=== PATIENT | male | born 1975 | race Caucasian/White ===

== ENCOUNTER 2016-12-16 00:47 | Emergency (ER) | payer BC, OTHER ==
--- NOTE | 2016-12-16 01:07 | ER Document Report ---
ED General - General Mode of Arrival: Medic Information source: Patient, Relative - Spouse - HPI Onset: Just prior to arrival Associated symptoms: Chest pain <CHAMP KING - Last Filed: 12/16/16 02:54> <JOÃO OWENS - Last Filed: 12/16/16 04:29> - General Stated Complaint: TEMP,FACIAL DROOPING,CHEST PAIN Notes: Patient is a 41-year-old male presented worse department with complaints of chest pain and left-sided facial droop. Patient states that he is watching the football game and drank 3-4 beers tonight. Patient suddenly had some chest pain which he "grabbed his chest and fell to his knees." Patient states his chest pain stopped and he went to sit on his bed because he felt tired. Patient 's spouse states that the patient had a left sided facial droop which occurred approximately 10 minutes after the chest pain. Patient's past states that this facial droop lasted for approximately 2 minutes. Patient's denied any seizure related activity. Patient does not have any chest pain currently or any facial droop. Patient has had previous seizures in the past due to a allergic reaction to Ultram. Patient denies any previous alcohol withdrawal. ( CHAMP KING) - Related Data Allergies/Adverse Reactions: No Known Allergies Allergy (Verified 08/18/13 10:00) Past Medical History - General Information source: Patient, Relative - spouse - Social History Smoking Status: Never Smoker Cigarette use (# per day): No Chew tobacco use (# tins/day): No Frequency of alcohol use: Occasional Drug Abuse: None Family History: Other - degenerative disc disease lower back - Medical History Medical History: Negative Surgical Hx: Negative - Immunizations Hx Diphtheria, Pertussis, Tetanus Vaccination: - unk <CHAMP KING - Last Filed: 12/16/16 02:54> Review of Systems - Review of Systems Constitutional: No symptoms reported EENT: See HPI Cardiovascular: See HPI, Chest pain Respiratory: No symptoms reported Gastrointestinal: No symptoms reported Genitourinary: No symptoms reported Male Genitourinary: No symptoms reported Musculoskeletal: No symptoms reported Skin: No symptoms reported Hematologic/Lymphatic: No symptoms reported Neurological/Psychological: No symptoms reported -: Yes All other systems reviewed and negative <CHAMP KING - Last Filed: 12/16/16 02:54> Physical Exam - Vital signs Interpretation: Normal - General General appearance: Appears well, Alert In distress: None - HEENT Head: Normocephalic, Atraumatic Eyes: Normal Pupils: PERRL Mucous membranes: Moist - Respiratory Respiratory status: No respiratory distress Chest status: Nontender Breath sounds: Normal Chest palpation: Normal - Cardiovascular Rhythm: Regular Heart sounds: Normal auscultation Murmur: No - Abdominal Inspection: Normal Distension: No distension Bowel sounds: Normal Tenderness: Nontender Organomegaly: No organomegaly - Back Back: Normal, Nontender - Extremities General upper extremity: Normal inspection, Normal ROM, Normal strength General lower extremity: Normal inspection, Normal ROM, Normal strength - Neurological Neuro grossly intact: Yes Cognition: Normal Orientation: AAOx4 Orgas Coma Scale Eye Opening: Spontaneous Orgas Coma Scale Verbal: Oriented Orgas Coma Scale Motor: Obeys Commands Orgas Coma Scale Total: 15 Speech: Normal - Psychological Associated symptoms: Normal affect, Normal mood - Skin Skin Temperature: Warm Skin Moisture: Dry <CHAMP KING - Last Filed: 12/16/16 02:54> Course - Laboratory Result Diagrams: 12/16/16 01:00 12/16/16 01:00 <CHAMP KING - Last Filed: 12/16/16 02:54> - Laboratory Result Diagrams: 12/16/16 01:00 12/16/16 01:00 - Diagnostic Test Radiology reviewed: Reports reviewed - EKG Interpretation by Ut EKG shows normal: Sinus rhythm Rate: Tachycardia Rhythm: NSR <JOÃO OWENS - Last Filed: 12/16/16 04:29> - Re-evaluation Re-evalutation: 12/16/16 04:28 Patient is no acute findings on imaging or blood work. Patient feels better. It has been recommended to the patient that he stay for repeat cardiac blood work but he states that he feels better and he would prefer to go home. He will follow up at his clinic. No acute findings on exam. Stable for discharge. Return immediately if any worsening or concerning symptoms. Understands agrees with plan. (JOÃO OWENS) - Vital Signs Vital signs: Temp Pulse Resp BP Pulse Ox 98.4 F 108 H 20 136/98 H 94 12/16/16 00:53 12/16/16 03:00 12/16/16 03:00 12/16/16 03:00 12/16/16 03:00 (JOÃO OWENS) - Laboratory Laboratory results interpreted by me: 12/16/16 12/16/16 12/16/16 01:00 01:00 01:55 RDW 14.1 H Monocytes % 18.2 H AST 125 H ALT 125 H Urine Blood SMALL H (JOÃO OWENS) Discharge <CHAMP KING - Last Filed: 12/16/16 02:54> <JOÃO OWENS - Last Filed: 12/16/16 04:29> - Discharge Clinical Impression: Facial droop, resolved Chest pain Qualifiers: Chest pain type: unspecified Qualified Code(s): R07.9 - Chest pain, unspecified Condition: Stable Disposition: HOME, SELF-CARE Instructions: Chest Pain of Unclear Cause ([facility]) Additional Instructions: -Please return immediately if you have any worsening or concerning symptoms. Scribe Attestation: 12/16/16 04:29 I personally performed the services described in the documentation, reviewed and edited the documentation which was dictated to the scribe in my presence, and it accurately records my words and actions. (JOÃO OWENS) Scribe Documentation - Scribe Written by Libby:: Champ King 12/16/16 03:00 acting as scribe for :: Reyna <CHAMP KING - Last Filed: 12/16/16 02:54>
[2016-12-16 01:27] LABS: ABSOLUTE BASOPHILS # (AUTO) 0.1 10^3/uL (0.0-0.2); ABSOLUTE EOSINOPHILS # (AUTO) 0.1 10^3/uL (0.0-0.6); ABSOLUTE MONOCYTES (AUTO) 1.3 10^3/uL (0.1-1.4); ABSOLUTE NEUT (AUTO) 3.6 10^3/uL (1.7-8.2); BASOPHILS % (AUTO) 0.8 % (0-2); EOSINOPHILS % (AUTO) 1.3 % (0-6); HEMATOCRIT 46.1 % (37.9-51.0); HEMOGLOBIN 15.1 g/dL (13.5-17.0); HGB HCT DIFFERENCE -0.8; LYMPHOCYTES % (AUTO) 28.4 % (13-45); MEAN CORPUSCULAR HEMOGLOBIN 27.3 pg (27.0-33.4); MEAN CORPUSCULAR HGB CONC 32.6 g/dL (32.0-36.0); MEAN CORPUSCULAR VOLUME 84 fl (80-97); MONOCYTES % (AUTO) 18.2 % (3-13); RED BLOOD COUNT 5.51 10^6/uL (4.35-5.55); RED CELL DISTRIBUTION WIDTH 14.1 % (11.5-14.0); SEGMENTED NEUTROPHILS % (AUTO) 51.3 % (42-78); WHITE BLOOD COUNT 7.1 10^3/uL (4.0-10.5)
[2016-12-16 01:31] LABS: ALANINE AMINOTRANSFERASE 125 U/L (21-72); ALKALINE PHOSPHATASE 60 U/L (38-126); ANION GAP 14 (5-19); ASPARTATE AMINO TRANSFERASE 125 U/L (17-59); BILIRUBIN,TOTAL 0.4 mg/dL (0.2-1.3); BLOOD UREA NITROGEN 13 mg/dL (7-20); CALCIUM 9.2 mg/dL (8.4-10.2); CARBON DIOXIDE 24 mmol/L (22-30); CHLORIDE 102 mmol/L (98-107); CREATININE RESULT 1.04 mg/dL (0.52-1.25); GLUCOSE 102 mg/dL (75-110); POTASSIUM 4.4 mmol/L (3.6-5.0); SODIUM 140.4 mmol/L (137-145); TOTAL PROTEIN 7.4 g/dL (6.3-8.2)
[2016-12-16 01:32] LABS: PROTHROMBIN TIME 12.4 SEC (11.4-15.4)
[2016-12-16 01:52] LABS: VENOUS BLOOD BASE EXCESS -1.4 mmol/L; VENOUS BLOOD HCO3 24.2 mmol/L (20-32); VENOUS BLOOD PCO2 43.6 mmHg (35-63); VENOUS BLOOD PH 7.36 (7.30-7.42)
[2016-12-16 02:26] LABS: APPEARANCE,URINE CLEAR; BILIRUBIN,URINE NEGATIVE (NEGATIVE); GLUCOSE, URINE NEGATIVE (NEGATIVE); KETONES,URINE NEGATIVE (NEGATIVE); LEUKOCYTE ESTERASE,URINE NEGATIVE (NEGATIVE); NITRITE,URINE NEGATIVE (NEGATIVE); PROTEIN,URINE NEGATIVE (NEGATIVE); URINE SPECIFIC GRAVITY 1.002; UROBILINOGEN,URINE NEGATIVE mg/dL (<2.0)
[2016-12-16 03:17] VITALS: BP 136/98
--- NOTE | 2016-12-16 08:22 | EKG REPORT ---
SEVERITY:- BORDERLINE ECG - SINUS TACHYCARDIA NONSPECIFIC ST-T CHANGES- INFERIOR LEADS : Confirmed by: Tayo Manzo MD 16-Dec-2016 08:21:52
== END 2016-12-16 03:55 | disposition home or self-care (01) ==
LOC: ER 00:47
DX: R29.810 Facial weakness (principal); R07.9 Chest pain, unspecified; R50.9 Fever, unspecified
CPT/HCPCS: 36415; 70450; 71020; 80053; 81001; 82803; 82962; 83605; 84484; 85025; 85610; 87040; 87086; 93005; 93010; 99285

== ENCOUNTER 2018-02-26 14:17 | Emergency (ER) | payer SELFPAY ==
[2018-02-26] MEDS ORDERED: LIDOCAINE 1% INJ (10 MG/ML) 10 ML MDV INJ ONE (15:26)
--- NOTE | 2018-02-26 15:32 | ER Document Report ---
ED Hand/Wrist Injury - General Chief Complaint: Laceration Stated Complaint: THUMB LACERATION Time Seen by Provider: 02/26/18 15:16 Mode of Arrival: Ambulatory Information source: Patient Notes: 43-year-old male presents to ED for complaint of left thumb laceration. He states he was cutting some plastic and cut his left thumb with a pocket knife. He dressed this in some 4 x 4 and duct tape and came to the emergency room he stated he could not get it to stop bleeding he states that the pain is a sharp pain a 4 out of 5. He is alert oriented walks with a steady gait. TRAVEL OUTSIDE OF THE [place] IN LAST 30 DAYS: No - HPI Injury to: Thumb Onset: This afternoon Where: [place] [place] Timing: Still present Quality of pain: Sharp Severity: Moderate Pain Level: 4 Context: Laceration - Related Data Allergies/Adverse Reactions: No Known Allergies Allergy (Verified 08/18/13 10:00) Past Medical History - General Information source: Patient - Social History Smoking Status: Former Smoker Cigarette use (# per day): No Chew tobacco use (# tins/day): No Smoking Education Provided: No Frequency of alcohol use: Social Drug Abuse: None Occupation: [place] Lives with: Spouse/Significant other Family History: CAD, COPD, CVA, DM, Hyperlipidemia, Hypertension, Malignancy, Other - degenerative disc disease lower back. denies: Thyroid Disfunction Patient has suicidal ideation: No Patient has homicidal ideation: No - Past Medical History Cardiac Medical History: Reports: None Pulmonary Medical History: Reports: None EENT Medical History: Reports: None Neurological Medical History: Reports: None Endocrine Medical History: Reports: None Malignancy Medical History: Reports None GI Medical History: Reports: None Musculoskeltal Medical History: Reports None Skin Medical History: Reports None Psychiatric Medical History: Reports: None Traumatic Medical History: Reports: None Infectious Medical History: Reports: None Past Surgical History: Reports: Hx Oral Surgery - Dental surgery - Immunizations Immunizations up to date: Yes Hx Diphtheria, Pertussis, Tetanus Vaccination: Yes - He states less than 3 years ago today is 02/26/2018 Review of Systems - Review of Systems Constitutional: No symptoms reported EENT: No symptoms reported Cardiovascular: No symptoms reported Respiratory: No symptoms reported Gastrointestinal: No symptoms reported Genitourinary: No symptoms reported Male Genitourinary: No symptoms reported Musculoskeletal: No symptoms reported Skin: Other - Laceration to the left thumb Hematologic/Lymphatic: No symptoms reported Neurological/Psychological: No symptoms reported -: Yes All other systems reviewed and negative Physical Exam - Vital signs Vitals: Temp Pulse Resp BP Pulse Ox 98.8 F 98 17 165/97 H 97 02/26/18 14:30 02/26/18 14:30 02/26/18 14:30 02/26/18 14:30 02/26/18 14:30 Interpretation: Normal - General General appearance: Appears well, Alert - HEENT Head: Normocephalic, Atraumatic Eyes: Normal Pupils: PERRL - Respiratory Respiratory status: No respiratory distress Chest status: Nontender Breath sounds: Normal Chest palpation: Normal - Cardiovascular Rhythm: Regular Heart sounds: Normal auscultation Murmur: No - Abdominal Inspection: Normal Distension: No distension Bowel sounds: Normal Tenderness: Nontender Organomegaly: No organomegaly - Back Back: Normal, Nontender - Extremities General upper extremity: Normal inspection, Nontender, Normal color, Normal ROM , Normal temperature General lower extremity: Normal inspection, Nontender, Normal color, Normal ROM , Normal temperature, Normal weight bearing. No: Micaela's sign Hand: Tender, Laceration - left thumb, No evidence of human bite, No evidence of FB - Neurological Neuro grossly intact: Yes Cognition: Normal Orientation: AAOx4 Mirela Coma Scale Eye Opening: Spontaneous Mirela Coma Scale Verbal: Oriented Mirela Coma Scale Motor: Obeys Commands Mirela Coma Scale Total: 15 Speech: Normal Motor strength normal: LUE, RUE, LLE, RLE Sensory: Normal - Psychological Associated symptoms: Normal affect, Normal mood - Skin Skin Temperature: Warm Skin Moisture: Dry Skin Color: Normal Skin irregularity: Laceration - left thumb Course - Re-evaluation Re-evalutation: 02/26/18 17:05 Wound was cleaned well with surgical scrub irrigated with 300 of water and anesthetized with lidocaine 1% and 4 4-0 sutures used to close the wound. Patient was treated with bacitracin to the wound and giving Keflex and ibuprofen in the emergency room and discharged home with prescription for Keflex. Patient was given instructions on wound care and when to return to the doctor. - Vital Signs Vital signs: Temp Pulse Resp BP Pulse Ox 98.0 F 88 18 132/78 H 98 02/26/18 17:36 02/26/18 17:36 04/19/18 17:36 02/26/18 17:36 02/26/18 17:36 Procedures - Laceration/Wound Repair Left Finger Thumb Time completed: 17:04 Wound length (cm): 2.5 Wound's Depth, Shape: Linear Laceration pre-procedure: Sterile PPE donned, Sterile drapes applied Anesthetic type: 1% Lidocaine Volume Anesthetic (mLs): 4 Wound explored: No foreign body removed, Contaminated Irrigated w/ Saline (mLs): 300 Wound Repaired With: Sutures Suture Size/Type: 4:0 Number of Sutures: 4 Layer Closure?: No Post-procedure wound care: Sterile dressing applied Post-procedure NV exam normal: Yes Complications: No Discharge - Discharge Clinical Impression: Laceration of left thumb Qualifiers: Encounter type: initial encounter Damage to nail status: without damage Foreign body presence: without foreign body Qualified Code(s): S61.012A - Laceration without foreign body of left thumb without damage to nail, initial encounter HTN (hypertension) Qualifiers: Hypertension type: unspecified Qualified Code(s): I10 - Essential (primary) hypertension Condition: Stable Disposition: HOME, SELF-CARE Instructions: Family Physicians / Practices Additional Instructions: Hand Laceration A laceration on the hand can present special problems. It may be difficult to keep the wound dry. Motion of the fingers can disturb the healing edges. Your work may involve exposure to damaging chemicals or water. Keep the wound clean and dry. If you can't keep the cut dry, undisturbed, and free of chemical exposure, please discuss this with the doctor. If any water or chemical gets onto the dressing, remove it, blot the wound dry, then apply a fresh bandage. Dressings should be changed every day. If you feel the stitches pulling as you move the hand, a splint or other form of protection is needed. If any signs of infection occur (swelling, redness, increasing tenderness, red streaks, tender lumps in the armpit, or fever), see the doctor immediately. SOAP CLEANSING: Gently wash the wound daily using a mild soap (like Ivory, Phisoderm, Neutrogena). Use warm water, rubbing gently until all debris, ooze, and crusting have been washed from the wound. Allow to dry briefly (about 10 minutes) after cleaning. Repeat this cleansing at least three times a day for the first two days and then once or twice a day. ANTIBIOTIC OINTMENT PROTECTION: Your wounds are such that dressing them is not practical or optional. After cleansing, you should apply a thin coating of antibiotic ointment ( Bacitracin, not Neosporin) to the wounds at least three times daily. This lessens infection risk, and may decrease the amount of scarring. Use a q-tip or dull butter knife, not your finger, to apply this ointment. Any debris or ooze which builds up in the ointment should be gently rubbed off with a sterile gauze pad. Harder crusting may need to be gently scrubbed off with a clean wash cloth with soap and warm water, perhaps applying a warm, wet wash cloth to the wound for ten minutes first. Development of redness, severe itching, or blistering may mean allergy to the ointment. See the doctor. Cephalexin The antibiotic you've been prescribed is a member of the cephalosporin class. This type of antibiotic covers a wide variety of infections, including those of the skin, lungs, and urinary tract. It's useful for staph infections. This antibiotic is slightly similar to the penicillin family. In rare cases , a person who is allergic to penicillin will also be allergic to this medication. If you have had a severe allergic reaction to penicillin, and have not taken this antibiotic since that time, notify your doctor. Antibiotics which cover many germs ("broad spectrum" antibiotics) are more likely to cause diarrhea or "yeast" infections. Women prone to vaginal yeast problems may suffer an attack after taking this antibiotic. In infants, oral thrush (white spots "stuck" on the cheek) or yeast diaper rash may result. See your doctor if these problems occur. Call at once if you develop itching, hives , shortness of breath, or lightheadedness. Ibuprofen Ibuprofen is an excellent, safe drug for pain control. In addition, it has potent antiinflammatory effects which are beneficial, especially in the treatment of injuries, arthritis, or tendonitis. It's best to take ibuprofen with food. Persons with ulcer disease or allergy to aspirin should notify their physician of this before taking ibuprofen. Take the medication exactly as prescribed. Don't take additional doses unless instructed to do so by your doctor. If you develop wheezing, shortness of breath, hives, faintness, stomach pain, vomiting, or dark black stools, return for re-evaluation at once. Elevate the Injury Because of the nature of your injury, elevation will be helpful to reduce swelling. This also reduces infection risk in wounds. Keep the injury up above the level of your heart for at least the next 48 hours (or longer if the physician recommends it). FOLLOW-UP CARE: Please return in __3___ days for an infection check and dressing change. Your sutures should be removed in __8___ days. To facilitate a timely removal of your sutures, you may return to the Emergency Department at [facility]. You do not need to call for an appointment, but the best time to come in for suture removal is early in the morning. If you have been referred to another physician for follow-up care, call that physicians office for an appointment as you were instructed. If you experience a significant change in your laceration, or if you are concerned there may be an infection (swelling, redness, drainage, increasing tenderness, red streaks, tender lumps in the armpit or groin above the laceration, or fever) , return to the Emergency Department immediately re-evaluation. Prescriptions: Cephalexin Monohydrate [Keflex 500 mg Capsule] 500 mg PO QID #20 capsule Forms: Elevated Blood Pressure, Return to Work
[2018-02-26] MEDS ORDERED: CEPHALEXIN 500 MG CAPSULE PO ONE (16:57)
[2018-02-26] MEDS ORDERED: IBUPROFEN 600 MG TABLET PO ONE (16:57)
[2018-02-26 17:36] VITALS: BP 132/78
== END 2018-02-26 17:37 | disposition home or self-care (01) ==
LOC: ER 14:17
PROC: 0HQGXZZ Repair Left Hand Skin, External Approach (ICD-10-PCS; principal; 2018-02-26)
DX: S61.012A Laceration without foreign body of left thumb without damage to nail, initial encounter (principal); W26.0XXA Contact with knife, initial encounter; Y92.007 Garden or yard of unspecified non-institutional (private) residence as the place of occurrence of the external cause
CPT/HCPCS: 99282

== ENCOUNTER 2018-06-10 07:52 | Emergency (ER) | payer MEDICAID ==
--- NOTE | 2018-06-10 08:12 | ER Document Report ---
ED General - General Chief Complaint: Arm Pain Stated Complaint: ELBOW PAIN Time Seen by Provider: 06/10/18 08:11 Mode of Arrival: Ambulatory Information source: Patient TRAVEL OUTSIDE OF THE [place] IN LAST 30 DAYS: No - HPI Notes: 43-year-old male presents for right elbow pain after moving a carpet approximately 6 days ago. Pain with movement. Tried [id number]-muunitt ibuprofen and Tylenol without full relief. Has not tried any heat or icing. Denies any other area of injury. Denies previous injury to the elbow. Numbness or tingling down bilateral upper extremities. Reports that pain does radiate down to wrist when he does move it a certain way. Denies any trauma to elbow. Denies fevers, chills, chest pain,palpitations, shortness of breath, dyspnea, nausea, vomiting, diarrhea, abdominal pain, hematuria,blurred vision, double vision, loss of vision, speech changes, LH, dizziness, syncope, headaches , wheezing, ST, URI, neck pain, weakness, bowel or bladder dysfunction, saddle anesthesia, numbness or tingling in bilateral upper or lower extremities equally , muscle paralysis, weakness in bilateral upper or lower extremities equally or rash. Denies IV drug use. - Related Data Allergies/Adverse Reactions: No Known Allergies Allergy (Verified 08/18/13 10:00) Past Medical History - General Information source: Patient - Social History Smoking Status: Unknown if Ever Smoked Family History: CAD, COPD, CVA, DM, Hyperlipidemia, Hypertension, Malignancy, Other - degenerative disc disease lower back. denies: Thyroid Disfunction Renal/ Medical History: Denies: Hx Peritoneal Dialysis Past Surgical History: Reports: Hx Oral Surgery - Dental surgery - Immunizations Immunizations up to date: Yes Hx Diphtheria, Pertussis, Tetanus Vaccination: Yes - He states less than 3 years ago today is 02/26/2018 Review of Systems - Review of Systems Constitutional: No symptoms reported EENT: No symptoms reported Cardiovascular: No symptoms reported Respiratory: No symptoms reported Gastrointestinal: No symptoms reported Genitourinary: No symptoms reported Male Genitourinary: No symptoms reported Musculoskeletal: See HPI Skin: No symptoms reported Hematologic/Lymphatic: No symptoms reported Neurological/Psychological: No symptoms reported Physical Exam - Vital signs Vitals: Temp Pulse Resp BP Pulse Ox 99.0 F 86 14 175/98 H 100 06/10/18 07:58 06/10/18 07:58 06/10/18 07:58 06/10/18 07:58 06/10/18 07:58 - Notes Notes: PHYSICAL EXAMINATION: GENERAL: Well-appearing, well-nourished and in no acute distress. HEAD: Atraumatic, normocephalic. EYES: Pupils equal round and reactive to light, extraocular movements intact, sclera anicteric, conjunctiva are normal. ENT: Nares patent, oropharynx clear without exudates. Moist mucous membranes. NECK: Normal range of motion, supple without lymphadenopathy LUNGS: Breath sounds clear to auscultation bilaterally and equal. No wheezes rales or rhonchi. HEART: Regular rate and rhythm without murmurs ABDOMEN: Soft, nontender, nondistended abdomen. No guarding, no rebound. No masses appreciated. Musculoskeletal: Normal range of motion, no pitting or edema. No cyanosis. Right elbow pain with abduction and flexion and supination. no pain with pronation, extension. negative , Student Advisor + 2 BUE equally. APROM in shoulder. DTR + 2 in BUE equally. Noted crepitus with APROM in elbow. negative drop arm, neer sign, barr test, slightly positive impingement sign all on right. Full motor and sensory function in SHERRON. No vascular compromise. No noted swelling, abrasions, ecchymosis, lacerations, scars of recent trauma. No erythema or induration noted to area. Intact median, ulnar and radial nerves bilaterally and equally. NEUROLOGICAL: Cranial nerves grossly intact. Normal speech, normal gait. Normal sensory, motor exams PSYCH: Normal mood, normal affect. SKIN: Warm, Dry, normal turgor, no rashes or lesions noted. Course - Re-evaluation Re-evalutation: 06/10/18 16:55 43-year-old male afebrile vitals stable no distress presents for evaluation of acute right elbow pain. X-ray negative for any acute fracture dislocation, noted effusion. Patient placed in sling, advised to exercise elbow, apply heat 20 minutes on 20 minutes off several times a day. Patient has a right elbow sprain with effusion, low suspicion for rupture. I have reevaluated this patient multiple times and no significant life threatening changes, no signs of toxicity, sepsis or peritonitis are noted. The patient and I have discussed the diagnosis and risks, and we agree with discharging home and close follow- up. We also discussed returning to the Emergency Department immediately if new or worsening symptoms occur with the understanding that symptoms and presentations can change. At this time will discharge with return precautions and follow-up recommendations. Verbal discharge instructions given a the bedside and opportunity for questions given. We have discussed the symptoms which are most concerning (e.g., weakness in arm, fever and chills, numbness or tingling down bilateral upper hands, etc) that necessitate immediate return. Medication warnings reviewed. All questions and concerns answered by this provider. Patient is in agreement with this plan and has verbalized understanding of return precautions and the need for primary care follow-up in the next 24-72 hours. Patient verbalized understanding of plan of care and agree with plan of care. After performing a Medical Screening Examination, I estimate there is LOW risk for OPEN FRACTURE, COMPARTMENT SYNDROME, TENDON RUPTURE, ACUTE NEUROVASCULAR INJURY, or RETAINED FOREIGN BODY, thus I consider the discharge disposition reasonable. Also, there is no evidence or peritonitis, sepsis, or toxicity. I have reevaluated this patient multiple times and no significant life threatening changes are noted. The patient and I have discussed the diagnosis and risks, and we agree with discharging home with close follow-up with the understanding that symptoms and presentations can change. We also discussed returning to the Emergency Department immediately if new or worsening symptoms occur. We have discussed the symptoms which are most concerning (e.g., changing or worsening pain, fever, numbness, weakness, cool or painful digits) that necessitate immediate return. - Vital Signs Vital signs: Temp Pulse Resp BP Pulse Ox 99.0 F 86 14 160/92 H 100 06/10/18 07:58 06/10/18 07:58 06/10/18 07:58 06/10/18 09:24 06/10/18 07:58 Discharge - Discharge Clinical Impression: Right elbow tendonitis, Effusion, right elbow Condition: Stable Disposition: HOME, SELF-CARE Instructions: Elbow Effusion ([facility]), Tennis Elbow (Lateral Epicondylitis) ([facility]) Additional Instructions: The x-ray showed an effusion, no fracture dislocation. Elbow Effusion Your elbow shows no sign of fracture. However, there is fluid (probably blood) within the elbow joint. This may be due to a subtle cartilage injury or sprain, but it may also be a sign of a hidden fracture at the elbow. The usual treatment is to immobilize the elbow, and treat it exactly as if it were broken. Then in a few days, the joint will be rechecked by the physician for evidence of a hidden fracture. This follow-up is important -- the elbow must be checked as often as necessary until the physician is sure there is no broken bone. You should call the doctor or return at once if the elbow or forearm becomes severely painful or swollen, or if you become numb in the arm or hand. Do not drive, drink or operate heavy machinery while taking [place] as it can cause sedation, impairment of judgment. Sling throughout day, date arm out of sling to prevent contracture. Rice therapy. Take prednisone as directed, take [id number] anti- inflammatories as needed. Please follow up with the Orthopedics [facility] [address] [place] [id number] Return immediately for any new or worsening symptoms. Follow up with primary care provider, call tomorrow to make followup appointment. Prescriptions: Prednisone 20 mg PO BID #10 tablet Forms: Return to Work Referrals: TAMY MCKOY MD [ACTIVE STAFF] - Follow up in 3-5 days MARVIN ROBERTSON MD [ACTIVE STAFF] - Follow up in 3-5 days
--- NOTE | 2018-06-10 08:56 | RADIOLOGY REPORT (SQ) ---
EXAM DESCRIPTION: ELBOW RIGHT OVER 2 VIEWS COMPLETED DATE/TIME: 06/10/2018 8:41 am REASON FOR STUDY: pain x 5 days, worse with time COMPARISON: 02/10/2012. NUMBER OF VIEWS: Four views. TECHNIQUE: AP, lateral, and both oblique radiographic images acquired of the right elbow. LIMITATIONS: None. FINDINGS: MINERALIZATION: Normal. BONES: No acute fracture or dislocation. No worrisome bone lesions. JOINT: Mild prominence of the anterior fat pad which may indicate a small effusion. Posterior fat pa d not visualized. SOFT TISSUES: No soft tissue swelling. No foreign body. OTHER: No other significant finding. IMPRESSION: POSSIBLE SMALL JOINT EFFUSION. NO SIGNIFICANT BONY FINDINGS. TECHNICAL DOCUMENTATION: JOB ID: [id number] [employer]- All Rights Reserved Reading location - IP/workstation name: [email or web address]
[2018-06-10] MEDS ORDERED: HYDROCODONE/ACETAMINOPHEN 5-325 MG (6 TAB/ER DISP) PO PRN (09:01)
[2018-06-10 09:25] VITALS: BP 160/92
== END 2018-06-10 09:25 | disposition home or self-care (01) ==
LOC: ER 07:52
DX: M77.9 Enthesopathy, unspecified (principal); M25.421 Effusion, right elbow; M25.521 Pain in right elbow
CPT/HCPCS: 99283

== ENCOUNTER 2018-09-10 14:22 | Emergency (ER) | payer MEDICAID ==
[2018-09-10 14:43] VITALS: BP 164/95
[2018-09-10] MEDS ORDERED: DEXAMETHASONE SOD PHOS INJ 10 MG/1 ML VIAL IM ONE (14:56)
[2018-09-10] MEDS ORDERED: KETOROLAC TROMETHAMINE 60 MG/2 ML SDV IM ONE (14:56)
[2018-09-10] MEDS ORDERED: LIDOCAINE 5% (700 MG) TRANSDERMAL ADH..PATCH TP ONE (14:56)
--- NOTE | 2018-09-10 15:05 | ER Document Report ---
HPI - HPI Pain Level: 4 Notes: Patient is a 43-year-old male with no significant past medical history who presents to the ED complaining of right lower back pain times 1 week status post lifting injury. Patient states that he was lifting some heavy boxes at the time when he notices pain starting. Patient states that the pain has been relatively constant for the last week and does not radiate. Bending and twisting makes his pain worse. He is still eating and drinking without any difficulties. He is urinating normally and having normal bowel movements. He is able to ambulate. Denies drug allergies. Denies any IV drug use or spinal abscess history. Denies any headache, fever, neck pain, URI, sore throat, chest pain, palpitations, syncope, cough, shortness of breath, wheeze, dyspnea, abdominal pain, nausea/vomiting/diarrhea, urinary retention, dysuria, hematuria , loss of control of bowel or bladder, numbness/tingling, saddle anesthesia, muscle paralysis/weakness, or rash. - ROS Systems Reviewed and Negative: Yes All other systems reviewed and negative Past Medical History - Social History Smoking Status: Unknown if Ever Smoked Family History: CAD, COPD, CVA, DM, Hyperlipidemia, Hypertension, Malignancy, Other - degenerative disc disease lower back. denies: Thyroid Disfunction - Past Medical History Cardiac Medical History: Reports: Hx Hypertension Renal/ Medical History: Denies: Hx Peritoneal Dialysis Past Surgical History: Reports: Hx Oral Surgery - Dental surgery - Immunizations Immunizations up to date: Yes Hx Diphtheria, Pertussis, Tetanus Vaccination: Yes - He states less than 3 years ago today is 02/26/2018 Vertical Provider Document - CONSTITUTIONAL Agree With Documented VS: Yes Notes: PHYSICAL EXAMINATION: GENERAL: Well-appearing, well-nourished and in no acute distress. LUNGS: Breath sounds clear to auscultation bilaterally and equal. No wheezes rales or rhonchi. HEART: Regular rate and rhythm without murmurs, rubs, gallops. ABDOMEN: Soft, nontender, nondistended abdomen. No guarding, no rebound. No masses appreciated. Normal bowel sounds present. No CVA tenderness bilaterally. No pulsatile mass. rectal tone intact. Musculoskeletal: LE's b/l: FROM to passive/active. Strength 5+/5. No deficits noted. No bony tenderness of extremities. Back: FROM to passive/active. Strength 5+/5. No vertebral point tenderness, stepoffs, or deformities. No other bony tenderness, erythema, swelling, or ecchymosis. SLR negative b/l. + Rt tenderness to the lower L-paraspinal mm. Mild spasming. No SI jt tenderness. No foot drop Extremities: No cyanosis, clubbing, or edema b/l. Peripheral pulses 2+. Capillary refill less than 2 seconds. NEUROLOGICAL: Normal speech, normal gait. Normal sensory, motor exams. Reflexes 2+ b/l. PSYCH: Normal mood, normal affect. SKIN: Warm, Dry, normal turgor, no rashes or lesions noted. - INFECTION CONTROL TRAVEL OUTSIDE OF THE [place] IN LAST 30 DAYS: No Course - Re-evaluation Re-evalutation: 09/10/18 14:59 Patient is an afebrile, well-hydrated, 43-year-old male who presents to the ED with acute low back pain, suspect strain/sprain. Vitals are acceptable. PE is otherwise unremarkable for any focal neurological deficits. Patient was given Decadron, Toradol, and Lidoderm patch. He has no significant tachycardia, tachypnea, or hypoxia. He is nontoxic-appearing and is tolerating p.o. without difficulties. No deterioration over the past week. There are no signs of infection. No other red flag symptoms noted. No other labs or imaging warranted at this time based on H&P. Low suspicion for any meningitis, fracture , expanding/ruptured AAA, cauda equina syndrome, epidural mass lesion/abscess, herniated disc causing severe spinal stenosis, or other systemic infection at this time. Patient is aware that his condition can change from initial presentation and that he needs monitor symptoms closely for any acute changes. I will send him home with a prescription for baclofen and naproxen. Conservative measures otherwise for symptoms. Recheck with your PCM in 3-5 days. Consider consult with orthopedic/physical therapy. Return to the ED with any worsening/concerning symptoms otherwise as reviewed discharge. Patient is in agreement. - Vital Signs Vital signs: Temp Pulse Resp BP Pulse Ox 98.6 F 85 18 164/95 H 99 09/10/18 14:41 09/10/18 14:41 09/10/18 14:41 09/10/18 14:41 09/10/18 14:41 Discharge - Discharge Clinical Impression: Low back pain Qualifiers: Chronicity: acute Back pain laterality: right Sciatica presence: without sciatica Qualified Code(s): M54.5 - Low back pain Condition: Stable Disposition: HOME, SELF-CARE Instructions: Low Back Pain ([facility]), Muscle Relaxers ([facility]) Additional Instructions: Rest, Ice Tylenol/ibuprofen as needed Light stretches daily Strength exercises as able Moist heat and massage may help F/u with your PCP in 3-5 days for a recheck Consider consult(s) with Orthopedics/physical therapy for ongoing/worsening symptoms Denies any headache, fever, head injury, neck pain, changes in vision/speech/ mentation/hearing, URI, sore throat, chest pain, palpitations, syncope, cough, shortness of breath, wheeze, dyspnea, abdominal pain, nausea/vomiting/diarrhea, urinary retention, dysuria, hematuria, loss of control of bowel or bladder, numbness/tingling, saddle anesthesia, muscle paralysis/weakness, or rash. Prescriptions: Baclofen [Baclofen 10 mg Tablet] 5 - 10 mg PO BID PRN #10 tablet PRN Reason: Lidocaine [Lidoderm] 1 each TP DAILY #10 adh..patch Naproxen 500 mg PO BID PRN #20 tablet PRN Reason: Forms: Elevated Blood Pressure Referrals: [facility] ([facility]) [Provider Group] - Follow up as needed
== END 2018-09-10 15:32 | disposition home or self-care (01) ==
LOC: ER 14:22
DX: M54.5 Low back pain (principal); I10 Essential (primary) hypertension
CPT/HCPCS: 99283; 96372; J1885; J3490; J1100

== ENCOUNTER 2019-04-09 19:44 | Emergency (ER) | payer MEDICAID ==
[2019-04-09 19:57] VITALS: BP 170/107
[2019-04-09] MEDS ORDERED: HYDROCODONE/ACETAMINOPHEN 7.5-325 MG TABLET PO ONE (21:51)
--- NOTE | 2019-04-09 21:53 | ER Document Report ---
ED Medical Screen (RME) - General Chief Complaint: Hand Injury Stated Complaint: FINGER LACERATION Time Seen by Provider: 04/09/19 21:51 Notes: Patient is a 44-year-old male presents to the emergency department with multiple lacerations to his right hand. States a cupboard was opened and fell. States all the glasses over and it fell to the ground shattered. States he sustained multiple lacerations to his right hand. States his tetanus immunization is up-to-date. Patient's denying any other complaints. GENERAL: Alert, interacts well. No acute distress. SKIN: Warm, dry, normal turgor. Dry blood noted entire right hand, does still appear to have 2 lacerations to the dorsal aspect of the right hand. Further evaluation examination will be done once patient is in her room. I have greeted and performed a rapid initial assessment of this patient. A comprehensive ED assessment and evaluation of the patient, analysis of test results and completion of the medical decision making process will be conducted by additional ED providers. TRAVEL OUTSIDE OF THE [place] IN LAST 30 DAYS: No - Related Data Allergies/Adverse Reactions: No Known Allergies Allergy (Verified 04/09/19 19:47) Past Medical History - Past Medical History Cardiac Medical History: Reports: Hx Hypertension Renal/ Medical History: Denies: Hx Peritoneal Dialysis Past Surgical History: Reports: Hx Oral Surgery - Dental surgery - Immunizations Immunizations up to date: Yes Hx Diphtheria, Pertussis, Tetanus Vaccination: Yes - He states less than 3 years ago today is 02/26/2018 Physical Exam - Vital signs Vitals: Temp Pulse Resp BP Pulse Ox 98.2 F 101 H 14 170/107 H 98 04/09/19 19:52 04/09/19 19:52 04/09/19 19:52 04/09/19 19:52 04/09/19 19:52 Course - Vital Signs Vital signs: Temp Pulse Resp BP Pulse Ox 98.2 F 101 H 14 170/107 H 98 04/09/19 19:52 04/09/19 19:52 04/09/19 19:52 04/09/19 19:52 04/09/19 19:52
--- NOTE | 2019-04-09 22:44 | RADIOLOGY REPORT (SQ) ---
EXAM DESCRIPTION: XR HAND 3 OR MORE VIEWS COMPLETED DATE/TME: 04/09/2019 21:51 CLINICAL HISTORY: 44 years, Male, multiple lacs with glass COMPARISON: None. NUMBER OF VIEWS: 3 TECHNIQUE: 3 view right hand LIMITATIONS: None. FINDINGS: Negative for acute fracture or dislocation. Old healed fifth metacarpal fracture. Minor degenerative changes throughout the hand and wrist. Mild diffuse soft tissue swelling. No radiopaque foreign body IMPRESSION: No acute osseous abnormality. No radiopaque foreign body copyright 2010 [employer]- All Rights Reserved
[2019-04-09] MEDS ORDERED: ONDANSETRON 4 MG TAB.RAPDIS PO ONE (23:12)
[2019-04-09] MEDS ORDERED: HYDROMORPHONE HCL INJ/PF 2 MG/ML AMPULE SUBCUT ONE (23:12)
[2019-04-09] MEDS ORDERED: LIDOCAINE 1% INJ-PF (10 MG/ML) 30 ML SDV INJ ONE (23:18)
--- NOTE | 2019-04-09 23:27 | ER Document Report ---
ED General - General Chief Complaint: Hand Injury Stated Complaint: FINGER LACERATION Time Seen by Provider: 04/09/19 21:51 Primary Care Provider: DARREN WALTON DO [Primary Care Provider] - Follow up as needed Mode of Arrival: Ambulatory Information source: Patient TRAVEL OUTSIDE OF THE [place] IN LAST 30 DAYS: No - HPI Patient complains to provider of: Multiple lacerations to the right hand Onset: Just prior to arrival Onset/Duration: Sudden Quality of pain: Sharp Severity: Severe Pain Level: 5 Associated symptoms: None Exacerbated by: Movement Relieved by: Denies Similar symptoms previously: No Recently seen / treated by doctor: No Notes: 44-year-old male coming in today complaining of right hand lacerations. Evidently a cabinet full of glasses fell over on his daughter and in the process shattered glass fell on his hand when he was trying to lift the cabinet off of his daughter. He sustained multiple lacerations on his right hand. His tetanus shot is up-to-date. - Related Data Allergies/Adverse Reactions: No Known Allergies Allergy (Verified 04/09/19 19:47) Past Medical History - General Information source: Patient - Social History Smoking Status: Smoker,Current Status Unk Family History: CAD, COPD, CVA, DM, Hyperlipidemia, Hypertension, Malignancy, Other - degenerative disc disease lower back. denies: Thyroid Disfunction - Past Medical History Cardiac Medical History: Reports: Hx Hypertension Renal/ Medical History: Denies: Hx Peritoneal Dialysis Past Surgical History: Reports: Hx Oral Surgery - Dental surgery - Immunizations Immunizations up to date: Yes Hx Diphtheria, Pertussis, Tetanus Vaccination: Yes - He states less than 3 years ago today is 02/26/2018 Review of Systems - Review of Systems Notes: Constitutional: No fevers. No chills. EENT: No eye redness. No eye pain. No ear pain. No sore throat. Cardiovascular: No chest pain. No palpitations. Respiratory: No cough. No shortness of breath. No respiratory distress. Gastrointestinal: No abdominal pain. No nausea, vomiting, or diarrhea. Genitourinary: Atraumatic. No lesions. No pain. No discharge. Musculoskeletal: Positive for right hand lacerations Skin: No rash or lesions. Lymphatic: No swollen lymph nodes. Neurologic: No headache. No syncope. Psychiatric: No suicidal or homicidal ideation. Physical Exam - Vital signs Vitals: Temp Pulse Resp BP Pulse Ox 98.2 F 101 H 14 170/107 H 98 04/09/19 19:52 04/09/19 19:52 04/09/19 19:52 04/09/19 19:52 04/09/19 19:52 - Notes Notes: General: Well-developed, well-nourished. In no acute distress. Non-toxic appearing. Cardiac: Well-perfused. Regular rate and rhythm. No murmurs, rubs, or gallops. Pulmonary: No respiratory distress. No cyanosis. Bilateral lung fiels are clear to auscultation. Abdominal: Non-distended. Non-rigid. Bowels sounds are present in all four quadrants. No guarding or rebound. HEENT: Head is atraumatic. Conjunctivae not reddened. No tearing. PERRL. EOMI. Orbits atraumatic. No periorbital swelling or erythema. Oropharynx is without erythema, swelling, or exudates. Neck: Supple. No adenopathy. No meningismus. Dermatologic: Warm with good turgor. No rash. Atraumatic. Chest: Atraumatic. No chest wall tenderness to palpation. Musculoskeletal: 6 cm flap laceration lateral aspect of right long finger. 2 cm laceration to the dorsum of the right hand between the MCP joints of the third and fourth fingers. Both were examined for foreign bodies and none were found. Genitourinary: Examination deferred Neurologic: No gross neurologic deficits. Psychiatric: Normal mood. Course - Re-evaluation Re-evalutation: 04/10/19 00:20 X-rays of the right hand were negative for fracture and foreign body. Wounds were sutured successfully. Patient will be discharged home shortly - Vital Signs Vital signs: Temp Pulse Resp BP Pulse Ox 98.2 F 101 H 14 170/107 H 98 04/09/19 19:52 04/09/19 19:52 04/09/19 19:52 04/09/19 19:52 04/09/19 19:52 Procedures - Laceration/Wound Repair RIGHT THIRD FINGER Time completed: 00:21 Wound length (cm): 6 Wound's Depth, Shape: Linear, Flap Laceration pre-procedure: Sterile PPE donned, Sterile drapes applied, Shur-Clens applied Anesthetic type: 1% Lidocaine Volume Anesthetic (mLs): 8 Wound explored: Clean, No foreign body removed Wound Repaired With: Sutures Suture Size/Type: 4:0, Ethilon Number of Sutures: 6 Layer Closure?: No Post-procedure wound care: Sterile dressing applied, Splint applied Post-procedure NV exam normal: Yes Complications: No RIGHT HAND LACERATION Time completed: 00:22 Wound length (cm): 2 Wound's Depth, Shape: Linear Laceration pre-procedure: Sterile PPE donned, Sterile drapes applied, Shur-Clens applied Anesthetic type: 1% Lidocaine Volume Anesthetic (mLs): 3 Wound explored: Clean, No foreign body removed Wound Repaired With: Sutures Suture Size/Type: 4:0, Ethilon Number of Sutures: 3 Layer Closure?: No Discharge - Discharge Clinical Impression: Finger laceration Qualifiers: Encounter type: initial encounter Finger: middle finger Damage to nail status: without damage Foreign body presence: without foreign body Laterality: right Qualified Code(s): S61.212A - Laceration without foreign body of right middle finger without damage to nail, initial encounter Hand laceration Qualifiers: Encounter type: initial encounter Foreign body presence: without foreign body Laterality: right Qualified Code(s): S61.411A - Laceration without foreign body of right hand, initial encounter Condition: Good Disposition: HOME, SELF-CARE Instructions: Antibiotic Ointment Protection ([facility]), Laceration Care ([facility]), Soap Cleansing ([facility]), Oral Narcotic Medication ([facility]), Tetanus Immunization Given ([facility]) Additional Instructions: Be sure to clean the wounds at least once a day with gentle soap and water. You may apply antibiotic ointment to the lacerations. The sutures may be removed in 10 to 14 days. Be sure that YOU use your splint on the middle finger laceration for the full duration until the sutures are removed. Referrals: DARREN WALTON, [Primary Care Provider] - Follow up as needed
[2019-04-10] MEDS ORDERED: HYDROCODONE/ACETAMINOPHEN 5-325 MG (6 TAB/ER DISP) PO PRN (00:18)
== END 2019-04-10 01:21 | disposition home or self-care (01) ==
LOC: ER 19:44
DX: S61.212A Laceration without foreign body of right middle finger without damage to nail, initial encounter (principal); S61.411A Laceration without foreign body of right hand, initial encounter; W25.XXXA Contact with sharp glass, initial encounter; Y93.89 Activity, other specified; I10 Essential (primary) hypertension
CPT/HCPCS: 99283; 96372; 73130; 12004; S0119; J3490; J1170

== ENCOUNTER 2019-06-01 10:48 | Emergency (ER) | payer OTHER, MEDICAID ==
[2019-06-01 10:58] VITALS: BP 154/99
[2019-06-01] MEDS ORDERED: LIDOCAINE 1% INJ-PF (10 MG/ML) 30 ML SDV INJ ONE (11:08)
--- NOTE | 2019-06-01 11:14 | ER Document Report ---
ED Extremity Problem, Lower - General Chief Complaint: Laceration Stated Complaint: ANKLE LACERATION Time Seen by Provider: 06/01/19 11:07 Primary Care Provider: DARREN WALTON DO [Primary Care Provider] - 06/04/19 Mode of Arrival: Ambulatory Information source: Patient Notes: 44-year-old male presents to ED for a laceration to the left lower leg. It is 6 cm in length very superficial. 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 He is alert oriented respirations regular and unlabored speaking in full sentences. He states his last tetanus shot was in 2015. He states he does not smoke he drinks on weekends and does not do drugs. TRAVEL OUTSIDE OF THE [place] IN LAST 30 DAYS: No - HPI Patient complains to provider of: Injury, Pain, Swelling Location: Leg Occurred: Just prior to arrival Where: Work Onset/Duration: Sudden Quality of pain: Sharp, Throbbing Severity: Moderate Pain Level: 4 Context: Laceration Recent injury: Yes Associated symptoms: Painful ambulation Exacerbated by: Hanging down, Movement, Walking Relieved by: Nothing - Related Data Allergies/Adverse Reactions: No Known Allergies Allergy (Verified 06/01/19 10:50) Past Medical History - General Information source: Patient - Social History Smoking Status: Never Smoker Frequency of alcohol use: Social Drug Abuse: None Occupation: [employer] Family History: CAD, COPD, CVA, DM, Hyperlipidemia, Hypertension, Malignancy, Other - degenerative disc disease lower back. denies: Thyroid Disfunction Patient has suicidal ideation: No Patient has homicidal ideation: No - Past Medical History Cardiac Medical History: Reports: Hx Hypertension Pulmonary Medical History: Reports: None EENT Medical History: Reports: None Neurological Medical History: Reports: None Endocrine Medical History: Reports: None Renal/ Medical History: Reports: None Malignancy Medical History: Reports None GI Medical History: Reports: None Musculoskeletal Medical History: Reports None Skin Medical History: Reports None Psychiatric Medical History: Reports: None Traumatic Medical History: Reports: None Infectious Medical History: Reports: None Past Surgical History: Reports: Hx Oral Surgery - Dental surgery - Immunizations Immunizations up to date: Yes Hx Diphtheria, Pertussis, Tetanus Vaccination: Yes - 2015 Review of Systems - Review of Systems Constitutional: No symptoms reported EENT: No symptoms reported Cardiovascular: No symptoms reported Respiratory: No symptoms reported Gastrointestinal: No symptoms reported Genitourinary: No symptoms reported Male Genitourinary: No symptoms reported Musculoskeletal: No symptoms reported Skin: Other - Laceration left lower leg Hematologic/Lymphatic: No symptoms reported Neurological/Psychological: No symptoms reported -: Yes All other systems reviewed and negative Physical Exam - Vital signs Vitals: Temp Pulse Resp BP Pulse Ox 98.2 F 95 15 154/99 H 98 06/01/19 10:57 06/01/19 10:57 06/01/19 10:57 06/01/19 10:57 06/01/19 10:57 Interpretation: Normal - General General appearance: Appears well, Alert - HEENT Head: Normocephalic, Atraumatic Eyes: Normal Pupils: PERRL - Respiratory Respiratory status: No respiratory distress Chest status: Nontender Breath sounds: Normal Chest palpation: Normal - Cardiovascular Rhythm: Regular Heart sounds: Normal auscultation Murmur: No - Abdominal Inspection: Normal Distension: No distension Bowel sounds: Normal Tenderness: Nontender Organomegaly: No organomegaly - Back Back: Normal, Nontender - Extremities General upper extremity: Normal inspection, Nontender, Normal color, Normal ROM, Normal temperature General lower extremity: Normal inspection, Nontender, Normal color, Normal ROM, Normal temperature, Normal weight bearing. No: Micaela's sign - Neurological Neuro grossly intact: Yes Cognition: Normal Orientation: AAOx4 Mirela Coma Scale Eye Opening: Spontaneous Catarina Coma Scale Verbal: Oriented Catarina Coma Scale Motor: Obeys Commands Mirela Coma Scale Total: 15 Speech: Normal Motor strength normal: LUE, RUE, LLE, RLE Sensory: Normal - Psychological Associated symptoms: Normal affect, Normal mood - Skin Skin Temperature: Warm Skin Moisture: Dry Skin Color: Normal Skin irregularity: Laceration - 6 cm left lateral lower leg Location of irregularity: Extremities Irregularity with: Tenderness Course - Vital Signs Vital signs: Temp Pulse Resp BP Pulse Ox 98.2 F 95 15 154/99 H 98 06/01/19 10:57 06/01/19 10:57 06/01/19 10:57 06/01/19 10:57 06/01/19 10:57 - Diagnostic Test Radiology reviewed: Image reviewed Procedures - Laceration/Wound Repair Left Leg Time completed: 11:42 Wound length (cm): 6 Wound's Depth, Shape: Superficial, Linear Laceration pre-procedure: Sterile PPE donned, Sterile drapes applied, Shur-Clens applied Anesthetic type: 1% Lidocaine Volume Anesthetic (mLs): 6 Wound explored: Contaminated Irrigated w/ Saline (mLs): 300 Wound Repaired With: Sutures Suture Size/Type: 4:0, Ethilon Number of Sutures: 5 Layer Closure?: No Post-procedure wound care: Sterile dressing applied Post-procedure NV exam normal: Yes Complications: No Discharge - Discharge Clinical Impression: Laceration of left lower leg Qualifiers: Encounter type: initial encounter Qualified Code(s): S81.812A - Laceration without foreign body, left lower leg, initial encounter Condition: Stable Disposition: HOME, SELF-CARE Additional Instructions: LACERATION CARE: Your laceration has been sutured to keep the skin edges aligned during healing. The time of suture removal depends on the nature and location of your cut. Please follow the care instructions the doctor has outlined for you and return for further care, according to the schedule you've been given. Keep the wound and dressing clean. Unless you were told otherwise, you may shower daily, blotting the wound dry with a clean, unused towel. At other times, If the dressing gets wet or blood soaked, remove it and blot the wound dry, then reapply a new dressing. Unless you were instructed otherwise, dressings should be changed at least daily. If any signs of infection occur (swelling, redness, drainage, increasing tenderness, red streaks, tender lumps in the armpit or groin above the laceration, or fever), see the doctor immediately. SOAP CLEANSING: Gently wash the wound daily using a mild soap (like Ivory, Phisoderm, Neutrogena). Use warm water, rubbing gently until all debris, ooze, and crusting have been washed from the wound. Allow to dry briefly (about 10 minutes) after cleaning. Repeat this cleansing at least three times a day for the first two days and then once or twice a day. ANTIBIOTIC OINTMENT PROTECTION: Your wounds are such that dressing them is not practical or optional. After cleansing, you should apply a thin coating of antibiotic ointment (Bacitracin, not Neosporin) to the wounds at least three times daily. This lessens infection risk, and may decrease the amount of scarring. Use a q-tip or dull butter knife, not your finger, to apply this ointment. Any debris or ooze which builds up in the ointment should be gently rubbed off with a sterile gauze pad. Harder crusting may need to be gently scrubbed off with a clean wash cloth with soap and warm water, perhaps applying a warm, wet wash cloth to the wound for ten minutes first. Development of redness, severe itching, or blistering may mean allergy to the ointment. See the doctor. PROPHYLACTIC ANTIBIOTIC: The antibiotics which have been prescribed are designed to decrease the risk of infection. Only certain types of wounds benefit from this -- the typical cut, scrape, or burn DOES NOT require antibiotics. Of course, infection can still occur despite the use of prophylactic antibiotics. Your wound will heal with less chance of an infectious complication if you take the medication as directed. The most important dose is the FIRST dose, so don't delay filling the prescription! FOLLOW-UP CARE: Please see primary care in __3___ days for an infection check and dressing change. Your sutures should be removed in __12___ days. To facilitate a timely removal of your sutures, you may return to the Emergency Department at [facility]. You do not need to call for an appointment, but the best time to come in for suture removal is early in the morning. If you have been referred to another physician for follow-up care, call that physicians office for an appointment as you were instructed. If you experience a significant change in your laceration, or if you are concerned there may be an infection (swelling, redness, drainage, increasing tenderness, red streaks, tender lumps in the armpit or groin above the laceration, or fever), return to the Emergency Department immediately re-evaluation. Prescriptions: Cephalexin Monohydrate [Keflex 500 mg Capsule] 500 mg PO Q6H 5 Days capsule Forms: Elevated Blood Pressure, Return to Work Referrals: DARREN WALTON DO [Primary Care Provider] - 06/04/19
[2019-06-01] MEDS ORDERED: IBUPROFEN 800 MG TABLET PO ONE (11:27)
--- NOTE | 2019-06-01 12:14 | RADIOLOGY REPORT (SQ) ---
EXAM DESCRIPTION: TIBIA FIBULA LEFT COMPLETED DATE/TIME: 06/01/2019 11:20 am REASON FOR STUDY: r/o foreign body, injury COMPARISON: None. NUMBER OF VIEWS: Two views. TECHNIQUE: Two radiographic images acquired of the left tibia and fibula to include the knee and ank le in at least one projection. LIMITATIONS: None. FINDINGS: MINERALIZATION: Normal. BONES: No acute fracture or dislocation. No worrisome bone lesions. SOFT TISSUES: No obvious swelling or foreign body. OTHER: No other significant finding. IMPRESSION: NEGATIVE STUDY OF THE LEFT TIBIA AND FIBULA. NO RADIOGRAPHIC EVIDENCE OF ACUTE INJURY. TECHNICAL DOCUMENTATION: JOB ID: [id number] [email or web address] All Rights Reserved Reading location - IP/workstation name: [email or web address]
== END 2019-06-01 11:52 | disposition home or self-care (01) ==
LOC: ER 10:48
PROC: 0HQLXZZ Repair Left Lower Leg Skin, External Approach (ICD-10-PCS; principal; 2019-06-01)
DX: S81.812A Laceration without foreign body, left lower leg, initial encounter (principal); W26.8XXA Contact with other sharp object(s), not elsewhere classified, initial encounter; I10 Essential (primary) hypertension
CPT/HCPCS: 99283